=== PATIENT | male | born 1990 | race African-American/Black ===

== ENCOUNTER 2016-11-03 16:53 | Emergency (ER) | payer OTHER ==
[~2016-11-03] VITALS: Ht 177.8 cm; Wt 77.3 kg
[2016-11-03] MEDS ORDERED: IBUPROFEN 400 MG TABLET PO ONE (18:15)
[2016-11-03 18:31] VITALS: BP 135/81
== END 2016-11-03 19:08 | disposition home or self-care (01) ==
LOC: EMS 16:55
DX: S13.4XXA Sprain of ligaments of cervical spine, initial encounter (principal); V43.52XA Car driver injured in collision with other type car in traffic accident, initial encounter; Y93.89 Activity, other specified; Y92.89 Other specified places as the place of occurrence of the external cause; Y99.8 Other external cause status
CPT/HCPCS: 72040; 99284